=== PATIENT | male | born 1970 | race Caucasian/White ===

== ENCOUNTER 2017-01-19 17:09 | Emergency (ER) | payer OTHER ==
[~2017-01-19] VITALS: Ht 188 cm; Wt 105.0 kg
[2017-01-19 17:15] VITALS: TEMP 37; Ht 188 cm; Wt 105.0 kg
[2017-01-19] MEDS ORDERED: LORAZEPAM 2 MG/ML 1 ML VIAL IV STA (17:26)
--- NOTE | 2017-01-19 17:32 | EMERGENCY ROOM VISIT NOTE ---
History Report prepared by Vilma: Priyanka Norris Under the Supervision of: Dr. Jairo Moya M.D. First contact with patient: 17:19 Chief Complaint: SEIZURE Stated Complaint: SEIZURE - FELL HIT HEAD ON CONCRETE Nursing Triage Summary: pt here with witnessed seizure at [facility], now has small head lac and hematoma History of Present Illness The patient is a 46 year old male who presents to the Emergency Room with complaints of a sudden seizure that occurred an hour and a half ago. The security guards report that the patient had a sudden witnessed seizure today. They report that the patient clenched up, shook, and fell hitting his head off the floor. The patient reports a history of seizures, noting that he typically has approximately one per month. He states that his last seizure was 1 week ago. The patient states that he is currently on Topamax, Depakote, Keppra, and Phenobarbital for his seizures. He denies any loss of control of his bowel/ bladder or tongue bite. The patient denies any recent illness. He states that his tetanus is up to date. The patient reports a history of Hepatitis C. Source of History: patient, other (security guards) Onset: an hour and a half ago Position: other (global) Quality: other (seizure) Timing: other (sudden) Note: Associated Symptoms: head trauma Review of Systems See HPI for pertinent positives & negatives. A total of 10 systems reviewed and were otherwise negative. Past Medical & Surgical Medical Problems: (1) Hepatitis C (2) Seizure disorder Family History No pertinent family history stated. Social History Smoking Status: Current Every Day Smoker Marital Status: single Housing Status: other ([facility]) Current/Historical Medications Scheduled Clotrimazole (Lotrimin 1%), 1 APPLN TOP BID Divalproex Sodium (Depakote Delay Rel), 1,000 MG PO BID Haloperidol (Haloperidol), 4 MG PO HS Levetiracetam (Keppra), 1,000 MG PO BID Levetiracetam (Keppra), 500 MG PO BID Phenobarbital (Phenobarbital), 3 TABS PO QPM Phenobarbital (Phenobarbital), 32.4 MG PO QAM Selenium Sulfide (Selsun), 1 APPLN TOP MWF Topiramate (Topamax), 50 MG PO QAM Trazodone Hcl (Trazodone), 200 MG PO HS Vitamin E (Vitamin E), 400 MG PO BID Allergies Coded Allergies: Phenytoin (Unverified Allergy, Unknown, UNKNOWN, 01/19/17) Physical Exam Vital Signs Date Time Temp Pulse Resp B/P (MAP) Pulse Ox O2 Delivery O2 Flow Rate FiO2 01/19/17 20:33 50 20 137/89 98 01/19/17 19:45 50 20 137/89 98 Room Air 01/19/17 17:15 37.0 52 16 134/84 96 Room Air Physical Exam GENERAL: Patient is in no acute distress. HEENT: Abrasion with hematoma to the right parietal scalp. No laceration requiring repair. Multiple old scars from previous head trauma. No tongue bite NECK: No stridor, no adenopathy, no meningismus, trachea is midline. LUNGS: Clear to auscultation bilaterally, no wheeze, no rhonchi, breath sounds equal. HEART: Without murmurs gallops or rubs, regular rate and rhythm. ABDOMEN: Soft, nontender, bowel sounds positive, no hernias, no peritonitis. EXTREMITIES: No cyanosis or edema, full range of motion of all the joints without pain or difficulty, no signs for acute trauma. NEUROLOGIC: Oriented x 3, no acute motor or sensory deficits, no focal weakness. GCS 15 SKIN: No rash, no jaundice, no diaphoresis. Medical Decision & Procedures ER Provider Diagnostic Interpretation: CT results as stated below per my review and radiologist interpretation: CT HEAD WITHOUT CONTRAST (CT) CLINICAL HISTORY: Altered mental status. Weakness. COMPARISON STUDY: No previous studies for comparison. TECHNIQUE: Axial CT of the brain is performed from the vertex to the skull base. IV contrast was not administered for this examination. CT DOSE: 687.98 mGy.cm FINDINGS: No intra or extra-axial mass lesions are visualized. There is no CT evidence of acute cortical infarction. There is no evidence of midline shift. There is no acute hemorrhage. No calvarial fractures are visualized. There is mild diffuse calvarial thickening. There is no evidence of pathologic ventricular dilatation. There is opacification of the right posterior ethmoid air cell. IMPRESSION: No acute intracranial findings Electronically signed by: Rao Long M.D. 01/19/2017 6:08 PM Dictated Date/Time: 01/19/2017 6:07 PM Laboratory Results 01/19/17 17:40 01/19/17 17:40 Test 01/19/17 17:40 Red Blood Count 4.47 M/uL (4.7-6.1) Mean Corpuscular Volume 88.8 fL (80-100) Mean Corpuscular Hemoglobin 30.6 pg (25-34) Mean Corpuscular Hemoglobin Concent 34.5 g/dl (32-36) RDW Standard Deviation 41.8 fL (36.4-46.3) RDW Coefficient of Variation 12.8 % (11.5-14.5) Mean Platelet Volume 12.9 fL (7.4-10.4) Platelet Estimate DECREASED Anion Gap 7.0 mmol/L (3-11) Est Creatinine Clear Calc Drug Dose 156.9 ml/min Estimated GFR () 126.8 Estimated GFR (Non- 109.4 BUN/Creatinine Ratio 12.7 (10-20) Calcium Level 8.2 mg/dl (8.5-10.1) Valproic Acid (Depakene) Level 105 mcg/ml (50-100) Phenobarbital Level 23.5 mcg/mL (15.0-40.0) Laboratory results reviewed by me. Medications Administered Medications (Trade) Dose Ordered Sig/Aleksandra Route Start Time Stop Time Status Last Admin Dose Admin Lorazepam (Ativan Inj) 1 mg NOW STAT IV 01/19/17 17:26 01/19/17 17:30 DC 01/19/17 17:55 1 MG ECG Indication: other Rate (beats per minute): 50 Rhythm: sinus bradycardia Findings: no acute ischemic change, no ectopy ED Course 1720: The patient was evaluated in room B10. A complete history and physical exam was performed. 1725: Ordered Ativan Inj 1 mg IV. 2001: I reevaluated the patient and he is doing well. I discussed the exam findings with him and I discussed the treatment plan. He verbalized complete understanding and agreement. He is ready for discharge. Medical Decision The patient is a 46 year old male who presents to the ED with complaints of a seizure. Differential diagnoses considered include break through seizure, missed medications, intracranial bleeding, skull fracture, low anti-seizure medication levels, dehydration, fatigue. There is no leukocytosis or concerning anemia. No significant electrolyte abnormality or kidney failure. The valproic acid levels and phenobarbital levels were not subtherapeutic. Keppra level is pending. Brain CT shows no skull fracture or acute intracranial bleeding. EKG shows a sinus bradycardia, no acute ischemia. On exam, the patient had no focal neurologic deficits, his mental state was at baseline. The abrasion to the right scalp did not require any suturing. The patient was given 1 mg of IV Ativan, he has been doing well, he has had no further seizure activity. As per his history, he does have fairly frequent breakthrough seizures. The patient is being discharged back to the care home, no change in his care. He can return for worsening symptoms. The care home can call for the results of the Keppra level in about a week. Medication Reconciliation: I attest that I have personally reviewed the patient' s current medication list. The patient's blood pressure was mildly elevated and this can be followed by the physicians at the care home. Impression Primary Impression: Seizure Additional Impression: Head trauma Scribe Attestation The scribe's documentation has been prepared under my direction and personally reviewed by me in its entirety. I confirm that the note above accurately reflects all work, treatment, procedures, and medical decision making performed by me. Departure Information Dispostion Home / Self-Care Referrals Alfredo THOMAS (PCP) Forms HOME CARE DOCUMENTATION FORM, IMPORTANT VISIT INFORMATION Patient Instructions My [facility] Additional Instructions meds as before you can call here for a Keppra level result in about 1 week lab testing and brain CT imaging was ok today Problem Qualifiers
[2017-01-19] MEDS ORDERED: LTRCR30 TOP (17:48)
[2017-01-19] MEDS ORDERED: PB30 PO ×2 (17:48)
[2017-01-19] MEDS ORDERED: LEVE500T13 PO (17:48)
[2017-01-19] MEDS ORDERED: SLSS TOP (17:48)
[2017-01-19] MEDS ORDERED: HLD1X PO (17:48)
[2017-01-19] MEDS ORDERED: TOPI50TA16 PO (17:48)
[2017-01-19] MEDS ORDERED: KPP/1000 PO (17:48)
[2017-01-19] MEDS ORDERED: DIVA500T5 PO (17:48)
[2017-01-19] MEDS ORDERED: VITA1TAB4 PO (17:48)
[2017-01-19] MEDS ORDERED: TRAZ100T29 PO (17:48)
--- NOTE | 2017-01-19 18:09 | DIAGNOSTIC IMAGING REPORT ---
CT HEAD WITHOUT CONTRAST (CT) CLINICAL HISTORY: Altered mental status. Weakness. COMPARISON STUDY: No previous studies for comparison. TECHNIQUE: Axial CT of the brain is performed from the vertex to the skull base. IV contrast was not administered for this examination. CT DOSE: 687.98 mGy.cm FINDINGS: No intra or extra-axial mass lesions are visualized. There is no CT evidence of acute cortical infarction. There is no evidence of midline shift. There is no acute hemorrhage. No calvarial fractures are visualized. There is mild diffuse calvarial thickening. There is no evidence of pathologic ventricular dilatation. There is opacification of the right posterior ethmoid air cell. IMPRESSION: No acute intracranial findings Electronically signed by: Rao Long M.D. 01/19/2017 6:08 PM Dictated Date/Time: 01/19/2017 6:07 PM
[2017-01-19 18:16] LABS: BUN/CREATININE RATIO 12.7 (10-20); CALCIUM 8.2 mg/dl (8.5-10.1); CREATININE 0.76 mg/dl (0.60-1.40)
[2017-01-19 18:20] LABS: PHENOBARBITAL 23.5 mcg/mL (15.0-40.0)
[2017-01-19 19:22] LABS: HEMATOCRIT 39.7 % (42-52); MEAN CELL VOLUME 88.8 fL (80-100); MEAN CORPUSCULAR HEMOGLOBIN 30.6 pg (25-34); MEAN CORPUSCULAR HGB CONC 34.5 g/dl (32-36); MEAN PLATELET VOLUME 12.9 fL (7.4-10.4); PLATELET COUNT 106 K/uL (130-400); PLT ESTIMATE DECREASED; RED BLOOD COUNT 4.47 M/uL (4.7-6.1); WHITE BLOOD COUNT 4.96 K/uL (4.8-10.8)
[2017-01-19 20:33] VITALS: BP 137/89; PULSE 50; O2SAT 98
== END 2017-01-19 20:34 | disposition home or self-care (01) ==
LOC: C.EDB 17:13
DX: R56.9 Unspecified convulsions (principal); S09.90XA Unspecified injury of head, initial encounter; W19.XXXA Unspecified fall, initial encounter; Y92.149 Unspecified place in prison as the place of occurrence of the external cause; Z86.19 Personal history of other infectious and parasitic diseases; F17.210 Nicotine dependence, cigarettes, uncomplicated; Z79.899 Other long term (current) drug therapy

== ENCOUNTER → 2017-02-22 | Outpatient (CLI) | payer OTHER ==
[~2017-02-22] MED LIST: DIVA500T5 PO; HLD1X PO; KPP/1000 PO; LEVE500T13 PO; LTRCR30 TOP; PB30 PO; SLSS TOP; TOPI50TA16 PO; TRAZ100T29 PO; VITA1TAB4 PO
[2017-02-25 12:31] LABS: TOPIRAMATE (TOPAMAX)**30965 <0.5 mcg/mL
== END | disposition home or self-care (01) ==
LOC: C.LABSPEC 10:36
PROVIDERS: ATTEND Family Medicine
DX: R56.9 Unspecified convulsions (principal)